=== PATIENT | male | born 1975 | race Two or more races ===

== ENCOUNTER 2016-08-04 18:44 | Emergency (ER) | payer SELFPAY ==
[2016-08-04] MEDS ORDERED: IOPAMIDOL 370 (76%) 100 ML VIAL IV ONE (18:45)
[2016-08-04 19:06] LABS: ABSOLUTE NEUTROPHIL COUNT 1.7 K/mm3 (1.8-7.7); BASO % 0.9 % (0.2-1.0); EOS # 0.2 (0.0-0.5); EOS % 3.3 % (0.9-2.9); HEMATOCRIT 32.5 % (32.0-52.0); HEMOGLOBIN 9.4 gm/l (14.0-18.0); IMM NEUT% 0.2 % (0-1); LYMPH # 2.2 (1.0-4.8); LYMPH % 47.8 % (15-45); MEAN CELL VOLUME 68.9 fl (80.0-94.0); MEAN CORPUSCULAR HEMOGLOBIN 19.9 pg (27.0-31.0); MEAN CORPUSCULAR HGB CONC 28.9 g/dl (33.0-37.0); MEAN PLATELET VOLUME 10.8 fl (7.4-10.4); MONO # 0.5 (0.0-0.8); MONO % 10.2 % (4-12); NEUT % 37.6 % (43-75); PLATELET COUNT 233 K/mm3 (130-400)
[2016-08-04 19:21] LABS: ALB/GLOB RATIO 1.4 (>1.0); ALBUMIN 4.1 gm/dL (3.5-5.7); CALCIUM 9.1 mg/dL (8.6-10.3)
[2016-08-04 19:46] LABS: SPECIFIC GRAVITY 1.025 (1.001-1.030); URINE BILIRUBIN NEGATIVE (NEGATIVE); URINE BLOOD TRACE (NEGATIVE); URINE GLUCOSE (UA) NEGATIVE (NEGATIVE); URINE LEUKOCYTE ESTERASE NEGATIVE (NEGATIVE); URINE NITRITE NEGATIVE (NEGATIVE); URINE PROTEIN TRACE (NEGATIVE); URINE UROBILINOGEN NORMAL (0-1 mg/dl)
[2016-08-04 19:52] LABS: URINE APPEARANCE CLEAR; URINE COLOR YELLOW
[2016-08-04 20:01] LABS: URINE EPITHELIAL CELLS 0 /hpf; URINE WBC 0-1 /hpf
[2016-08-04 20:02] LABS: URINE BACTERIA 1+
[2016-08-04] MEDS ORDERED: ONDANSETRON 4 MG/2ML 2 ML VIAL ONE ×2 (20:21→20:22)
[2016-08-04 20:23] LABS: TROPONIN I < 0.01 ng/ml (0.0-0.06)
[2016-08-04 20:27] LABS: CKMB ISOENZYME 1.8 ng/ml (0.6-6.3)
--- NOTE | 2016-08-04 20:39 | CT ---
Name: PHONG LOWERY Exam: CT abdomen pelvis with contrast Comparison: None History: Periumbilical pain Procedure: Helical CT using multidetector technique was applied to the abdomen and pelvis during intravenous administration of 1 or cc Isovue-[id number]. Patient vomited at the initiation of the exam and therefore repeat scan was performed. No oral contrast was given per ordering physician. An automated dose reduction technique was used to minimize patient radiation dose. Findings: CT abdomen (contrast enhanced): Lung bases are clear. Heart is not enlarged. There is no pericardial effusion. Motion artifact degrades the exam. Liver, gallbladder, pancreas, spleen, adrenal glands, right kidney, aorta, IVC and portal vein are normal. There is a 1 cm left renal cyst.The stomach is distended with food. Moderate size hiatal hernia is present. Small bowel and colon are normal. There is no free air, free fluid or suspicious adenopathy. Regional skeleton is within normal limits. CT pelvis (contrast enhanced): Bladder is nearly empty. Prostate is enlarged. Seminal vesicles are symmetric. There is a minimal diverticulosis without current evidence for diverticulitis of the sigmoid colon. Small bowel is normal. A short normal caliber appendix is identified. There is no periappendiceal or pericecal stranding. Vascular calcifications are present. There is a moderate sized left fat filled inguinal hernia. There is no free air, free fluid or suspicious adenopathy. Impression: 1. This exam is degraded due to motion 2. Short normal-appearing appendix. There is no right lower quadrant inflammation 3. Moderate size left fat filled inguinal hernia 4. 1 cm left renal cyst. There is no calculus or hydronephrosis 5. Stomach is distended with food. There is a moderate size hiatal hernia. 6. There is no small bowel obstruction. Note: The above report was uploaded to [facility]'s electronic medical records system at 2035 hours.
[2016-08-04] MEDS ORDERED: MAALOX/LIDO2%VISC/SIMETHICONE 40 ML BOT ONE (21:07)
[2016-08-04 21:21] LABS: ANISOCYTOSIS 2+; HYPOCHROMIA 2+; PLATELET ESTIMATE NORMAL (NORMAL); POIKILOCYTOSIS 1+; TARGET CELLS 1+
== END 2016-08-04 21:34 | disposition home or self-care (01) ==
LOC: ED 18:44
DX: K44.9 Diaphragmatic hernia without obstruction or gangrene (principal); R10.13 Epigastric pain
CPT/HCPCS: 83690; 85025; 82553; 87086; 80053; 84484; 81001; 74177; 99284 ×2; 96374; A9270; J2405 ×2; Q9967